=== PATIENT | male | born 1955 | race Caucasian/White ===

== ENCOUNTER → 2018-02-03 | Day surgery (SDC) | payer OTHER ==
[~2018-02-03] VITALS: Ht 175.2 cm; Wt 108.9 kg
[~2018-02-03] MED LIST: ACTOS30 MG PO; AMARYL4 MG PO; ASPIRIN81 M1 PO; CRESTOR10 MG PO; METFORMIN1000 MG PO; PLAVIX75 MG PO; TENORMIN25 MG PO; ZANTAC 300300 MG PO
--- NOTE | ~2018-02-03 | O ---
[place], [place] OPERATIVE NOTE NAME: LENA DEAN [facility] #: [id number] UNIT #: [id number] ROOM: DOCTOR: MARIANA MATHEWS MD BIRTHDATE: [birth year] DOS: 02/03/2018 PREOPERATIVE DIAGNOSIS: Cataract, left eye. POSTOPERATIVE DIAGNOSIS: Cataract, left eye. OPERATION: Extracapsular cataract extraction by phacoemulsification with posterior chamber intraocular lens implantation, left eye. ANESTHESIA: Monitored standby. OPERATIVE FINDINGS AND PROCEDURE: 2% Xylocaine topical anesthetic gel was applied to the eye in the preop area. The patient was taken to the operating room and prepped and draped in the standard fashion for sterile intraocular surgery. A time out procedure was performed verifying correct patient, correct site and corrects lens with Xiao Mathews M.D. The operating microscope was swung into position and the lid speculum was inserted. Using a Mary paracentesis blade, a paracentesis was made through clear cornea. Viscoelastic was used to fill the anterior chamber. Using a metal keratome a 2.4 mm self-sealing clear corneal cataract incision was made temporally at the limbus. Using a pre-bent 25 gauge cystotome needle, a standard continuous curvilinear capsulorrhexis was performed. The anterior capsule was removed with forceps. The lens nucleus was hydrodissected and phacoemulsified in the posterior chamber. Cortical material was removed with the irrigation aspiration hand piece and the posterior capsule was then polished with a curet under irrigation. The posterior chamber and capsular bag were filled with viscoelastic. A posterior chamber intraocular lens manufactured by: [employer], Model #[id number], and 17.0 diopters in strength were then inserted into the posterior chamber and within the capsular bag using the lens cartridge and injector system. Viscoelastic was removed using the irrigation aspiration handpiece. The anterior chamber was filled with balanced salt solution through the paracentesis. Both the paracentesis site and cataract incisions were hydrated with BSS and verified to be water-tight and self-sealing. The incision checked to be water-tight using a Weck-Cherrie sponge. The integrity of the cataract wound and ocular tension were checked. Lid speculum and drapes were removed. The patient was transferred from the operating room to the recovery room in satisfactory condition. [place], [place] OPERATIVE NOTE NAME: LENA DEAN UNIT #: [id number] ROOM: DOCTOR: MARIANA MATHEWS MD BIRTHDATE: [birth year] MARIANA MATHEWS MD CM:OPRECORD:OPERATIVE NOTE [id number] MARIANA MATHEWS MD 02/03/18 1017 interface
[2018-02-03 09:00] VITALS: BP 118/48
[2018-02-03 09:44] VITALS: BP 113/53
[2018-02-03 09:57] VITALS: BP 115/52
[2018-02-03 10:09] VITALS: BP 121/49
== END | disposition home or self-care (01) ==
LOC: SDC 01-28 08:45
DX: H25.812 Combined forms of age-related cataract, left eye (principal); I10 Essential (primary) hypertension; I25.10 Atherosclerotic heart disease of native coronary artery without angina pectoris; E11.9 Type 2 diabetes mellitus without complications; E78.00 Pure hypercholesterolemia, unspecified; K21.9 Gastro-esophageal reflux disease without esophagitis; F41.9 Anxiety disorder, unspecified; Z87.891 Personal history of nicotine dependence; Z95.5 Presence of coronary angioplasty implant and graft; Z88.0 Allergy status to penicillin; Z91.041 Radiographic dye allergy status; Z79.899 Other long term (current) drug therapy; Z82.49 Family history of ischemic heart disease and other diseases of the circulatory system; Z83.3 Family history of diabetes mellitus; Z98.890 Other specified postprocedural states

== ENCOUNTER → 2018-02-24 | Day surgery (SDC) | payer OTHER ==
[~2018-02-24] VITALS: Ht 175.2 cm; Wt 108.9 kg
--- NOTE | ~2018-02-24 | O ---
[place], [place] OPERATIVE NOTE NAME: LENA DEAN [facility] #: [id number] UNIT #: [id number] ROOM: DOCTOR: MARIANA MATHEWS MD BIRTHDATE: [birth year] DOS: 02/24/2018 PREOPERATIVE DIAGNOSIS: Cataract, right eye. POSTOPERATIVE DIAGNOSIS: Cataract, right eye. OPERATION: Extracapsular cataract extraction by phacoemulsification with posterior chamber intraocular lens implantation, right eye. ANESTHESIA: Monitored standby. OPERATIVE FINDINGS AND PROCEDURE: 2% Xylocaine topical anesthetic gel was applied to the eye in the preop area. The patient was taken to the operating room and prepped and draped in the standard fashion for sterile intraocular surgery. A time out procedure was performed verifying correct patient, correct site and corrects lens with Xiao Mathews M.D. The operating microscope was swung into position and the lid speculum was inserted. Using a Mary paracentesis blade, a paracentesis was made through clear cornea. Viscoelastic was used to fill the anterior chamber. Using a metal keratome a 2.4 mm self-sealing clear corneal cataract incision was made temporally at the limbus. Using a pre-bent 25 gauge cystotome needle, a standard continuous curvilinear capsulorrhexis was performed. The anterior capsule was removed with forceps. The lens nucleus was hydrodissected and phacoemulsified in the posterior chamber. Cortical material was removed with the irrigation aspiration hand piece and the posterior capsule was then polished with a curet under irrigation. The posterior chamber and capsular bag were filled with viscoelastic. A posterior chamber intraocular lens manufactured by: [employer], Model #[id number], and 17.5 diopters in strength were then inserted into the posterior chamber and within the capsular bag using the lens cartridge and injector system. Viscoelastic was removed using the irrigation aspiration handpiece. The anterior chamber was filled with balanced salt solution through the paracentesis. Both the paracentesis site and cataract incisions were hydrated with BSS and verified to be water-tight and self-sealing. The incision checked to be water-tight using a Weck-Cherrie sponge. The integrity of the cataract wound and ocular tension were checked. Lid speculum and drapes were removed. The patient was transferred from the operating room to the recovery room in satisfactory condition. [place], [place] OPERATIVE NOTE NAME: LENA DEAN UNIT #: [id number] ROOM: DOCTOR: MARIANA MATHEWS MD BIRTHDATE: [birth year] MARIANA MATHEWS MD CM:OPRECORD:OPERATIVE NOTE MARIANA MATHEWS MD 02/24/18 0941 interface
[2018-02-24 07:40] VITALS: BP 122/75
[2018-02-24 09:20] VITALS: BP 118/65
[2018-02-24 09:35] VITALS: BP 121/66
[2018-02-24 09:49] VITALS: BP 144/69
== END | disposition home or self-care (01) ==
LOC: SDC 02-19 09:30
DX: H25.811 Combined forms of age-related cataract, right eye (principal); I10 Essential (primary) hypertension; I25.10 Atherosclerotic heart disease of native coronary artery without angina pectoris; E11.9 Type 2 diabetes mellitus without complications; F41.9 Anxiety disorder, unspecified; K21.9 Gastro-esophageal reflux disease without esophagitis; E66.9 Obesity, unspecified; Z68.35 Body mass index [BMI] 35.0-35.9, adult; Z88.0 Allergy status to penicillin; Z88.3 Allergy status to other anti-infective agents; Z98.42 Cataract extraction status, left eye; Z96.1 Presence of intraocular lens; Z79.899 Other long term (current) drug therapy; Z87.891 Personal history of nicotine dependence; Z95.5 Presence of coronary angioplasty implant and graft; Z83.3 Family history of diabetes mellitus; Z82.49 Family history of ischemic heart disease and other diseases of the circulatory system; Z80.0 Family history of malignant neoplasm of digestive organs

== ENCOUNTER → 2020-09-14 | Outpatient (CLI) | payer MEDICARE ==
[2020-09-14 09:50] LABS: BUN 21 mg/dl (7-24); CHLORIDE 106 mmol/L (98-107); CHOLESTEROL 119 mg/dL (<200); CREATININE 1.28 mg/dL (0.70-1.30); POTASSIUM 4.7 mmol/L (3.5-5.1); SODIUM 134 mmol/L (136-145); TRIGLYCERIDES 117 mg/dl (<150)
[2020-09-14 09:58] LABS: LDL CHOLESTEROL 51 mg/dL (9-159)
== END | disposition home or self-care (01) ==
LOC: LAB 09:03
PROVIDERS: ATTEND Family Medicine
DX: E11.9 Type 2 diabetes mellitus without complications (principal); E78.2 Mixed hyperlipidemia; I25.10 Atherosclerotic heart disease of native coronary artery without angina pectoris

== ENCOUNTER → 2021-01-02 | Outpatient (CLI) | payer MEDICARE ==
[2021-01-02 14:48] LABS: BUN 21 mg/dl (7-24); CHLORIDE 105 mmol/L (98-107); CREATININE 1.15 mg/dL (0.70-1.30); POTASSIUM 4.4 mmol/L (3.5-5.1); SODIUM 139 mmol/L (136-145)
== END | disposition home or self-care (01) ==
LOC: LAB 13:39
PROVIDERS: ATTEND Family Medicine
DX: E11.9 Type 2 diabetes mellitus without complications (principal)

== ENCOUNTER → 2021-06-27 | Outpatient (CLI) | payer MEDICARE ==
[2021-06-27 13:14] LABS: CHLORIDE 104 mmol/L (98-107); POTASSIUM 4.8 mmol/L (3.5-5.1); SODIUM 137 mmol/L (136-145)
[2021-06-27 13:30] LABS: BUN 19 mg/dl (7-24); CHOLESTEROL 114 mg/dL (<200); CREATININE 1.19 mg/dL (0.70-1.30); LDL CHOLESTEROL 47 mg/dL (9-159); TRIGLYCERIDES 124 mg/dl (<150)
== END | disposition home or self-care (01) ==
LOC: LAB 11:46
PROVIDERS: ATTEND Family Medicine
DX: I10 Essential (primary) hypertension (principal); E11.9 Type 2 diabetes mellitus without complications; E78.2 Mixed hyperlipidemia

== ENCOUNTER → 2021-11-06 | Day surgery (SDC) | payer MEDICARE ==
[2021-11-01 13:21] LABS: BASO % 0.7 % (0.0-1.0); EOS # 0.1 10*3/uL (0.0-0.4); EOS % 1.5 % (1.0-4.0); HEMATOCRIT 37.2 % (42.0-52.0); LYMPH % 32.5 % (27.0-41.0); MEAN CELL VOLUME 96.9 fl (80.0-94.0); MEAN CORPUSCULAR HGB 31.5 pg (27.0-31.0); MEAN CORPUSCULAR HGB CONC 32.5 g/dl (33.0-37.0); MONO # 0.6 10*3/uL (0.1-1.0); MONO % 10.3 % (3.0-9.0); NEUT # 3.3 10*3/uL (2.3-7.9); NEUT % 54.5 % (47.0-73.0); PLATELET COUNT AUTOMATED 178 10*3/uL (130-400); RED BLOOD COUNT 3.84 10*6/uL (4.50-5.90); RED CELL DISTRI WIDTH 13.6 % (0-14.5)
[2021-11-01 13:34] LABS: ACT PARTIAL THROMBO TIME 26.2 SECONDS (20.0-32.1)
[~2021-11-06] VITALS: Ht 175.2 cm; Wt 108.9 kg
[2021-11-06 08:17] VITALS: BP 127/68
[2021-11-06 08:32] VITALS: BP 123/68
[2021-11-06 08:47] VITALS: BP 116/67
[2021-11-06 09:01] VITALS: BP 120/59
== END | disposition home or self-care (01) ==
LOC: SDC 11-01 12:51
PROVIDERS: ATTEND Specialist
DX: R04.0 Epistaxis (principal); I10 Essential (primary) hypertension; E11.9 Type 2 diabetes mellitus without complications; F41.9 Anxiety disorder, unspecified; K21.9 Gastro-esophageal reflux disease without esophagitis; I25.10 Atherosclerotic heart disease of native coronary artery without angina pectoris; Z88.0 Allergy status to penicillin; Z88.5 Allergy status to narcotic agent; Z95.5 Presence of coronary angioplasty implant and graft; Z98.42 Cataract extraction status, left eye; Z98.41 Cataract extraction status, right eye

== ENCOUNTER → 2021-11-22 | Outpatient (CLI) | payer MEDICARE ==
[2021-11-22 09:08] LABS: BUN 28 mg/dl (7-24); CHLORIDE 107 mmol/L (98-107); CREATININE 1.29 mg/dL (0.70-1.30); POTASSIUM 4.6 mmol/L (3.5-5.1); SODIUM 139 mmol/L (136-145)
== END | disposition home or self-care (01) ==
LOC: LAB 08:35
PROVIDERS: ATTEND Family Medicine
DX: E11.9 Type 2 diabetes mellitus without complications (principal)

== ENCOUNTER → 2022-07-01 | Outpatient (CLI) | payer MEDICARE ==
[2022-07-01 12:27] LABS: BILIRUBIN Negative (Negative); BLOOD Negative (Negative); CLARITY Clear (Clear); COLOR Yellow (Yellow); GLUCOSE Negative (Negative); KETONE Negative (Negative); LEUKO ESTERASE Negative (Negative); NITRITE Negative (Negative); PH 6.5 (4.5-8.0); SPECIFIC GRAVITY 1.015 (1.001-1.030); UROBILINOGEN 0.2 E.U./dl (0.0-1.0)
[2022-07-01 12:37] LABS: BACTERIA TRACE; EPITHELIAL CELLS 0-2; RBC 0-2 rbc/hpf (0-2); WBC 0-2 wbc/hpf (0-5)
[2022-07-01 12:59] LABS: BUN 16 mg/dl (9-23); CHLORIDE 103 mmol/L (98-107); CHOLESTEROL 119 mg/dL (<200); LDL CHOLESTEROL 57 mg/dL (9-159); POTASSIUM 5.2 mmol/L (3.4-5.1); THYROID STIM HORMONE (HS) 1.511 uIU/ml (0.550-4.780); TRIGLYCERIDES 94 mg/dl (<150)
== END | disposition home or self-care (01) ==
LOC: LAB 12:06
PROVIDERS: ATTEND Family Medicine
DX: Z12.5 Encounter for screening for malignant neoplasm of prostate (principal); N40.1 Benign prostatic hyperplasia with lower urinary tract symptoms; E11.9 Type 2 diabetes mellitus without complications; I10 Essential (primary) hypertension; E78.2 Mixed hyperlipidemia

== ENCOUNTER → 2022-07-28 | Outpatient (CLI) | payer MEDICARE | END | disposition home or self-care (01) | LOC: US 01:55 | PROVIDERS: ATTEND Family Medicine | DX: Z13.6 Encounter for screening for cardiovascular disorders (principal) ==

== ENCOUNTER → 2023-01-21 | Outpatient (CLI) | payer MEDICARE ==
[2023-01-21 15:50] LABS: URIC ACID 5.8 mg/dL (3.7-9.2)
[2023-01-22 13:06] LABS: CCP ANTIBODIES IGG/IGA 3 units (0-19)
== END | disposition home or self-care (01) ==
LOC: LAB 14:56
PROVIDERS: ATTEND Family Medicine
DX: M13.0 Polyarthritis, unspecified (principal)

== ENCOUNTER → 2023-06-09 | Outpatient (CLI) | payer MEDICARE ==
[2023-06-09 10:55] LABS: BUN 18 mg/dl (9-23); CHLORIDE 104 mmol/L (98-107); CHOLESTEROL 147 mg/dL (<200); LDL CHOLESTEROL 82 mg/dL (9-159); POTASSIUM 4.2 mmol/L (3.4-5.1); TRIGLYCERIDES 114 mg/dl (<150)
== END | disposition home or self-care (01) ==
LOC: LAB 09:17
PROVIDERS: ATTEND Family Medicine
DX: I25.10 Atherosclerotic heart disease of native coronary artery without angina pectoris (principal); E11.8 Type 2 diabetes mellitus with unspecified complications; E78.2 Mixed hyperlipidemia

== ENCOUNTER → 2023-10-15 | Outpatient (CLI) | payer MEDICARE ==
[2023-10-15 09:55] LABS: MEAN CELL VOLUME 98.4 fl (80.0-94.0); MEAN CORPUSCULAR HGB 30.9 pg (27.0-31.0); MEAN CORPUSCULAR HGB CONC 31.4 g/dl (33.0-37.0); MEAN PLATELET VOLUME 13.4 fl (9.6-12.3); RED BLOOD COUNT 4.27 10*6/uL (4.50-5.90); RED CELL DISTRI WIDTH 13.8 % (0-14.5); WHITE BLOOD COUNT 6.5 10*3/uL (4.8-10.8)
[2023-10-15 10:16] LABS: ALKALINE PHOSPHATASE 57 U/L (46-116); BUN 19 mg/dl (9-23); CHLORIDE 104 mmol/L (98-107); CHOLESTEROL 133 mg/dL (<200); CPK 53 U/L (34-171); LDL CHOLESTEROL 68 mg/dL (9-159); POTASSIUM 4.3 mmol/L (3.4-5.1); SGPT/ALT 13 U/L (5-49); TRIGLYCERIDES 88 mg/dl (<150)
[2023-10-15 10:25] LABS: VITAMIN D, 25-HYDROXY 35.9 ng/mL (30-100)
== END | disposition home or self-care (01) ==
LOC: LAB 09:38
PROVIDERS: ATTEND Family Medicine
DX: I10 Essential (primary) hypertension (principal); E11.9 Type 2 diabetes mellitus without complications; E78.00 Pure hypercholesterolemia, unspecified; N40.0 Benign prostatic hyperplasia without lower urinary tract symptoms

== ENCOUNTER → 2024-01-29 | Outpatient (CLI) | payer MEDICARE | END | disposition home or self-care (01) | LOC: RAD 08:30 | PROVIDERS: ATTEND Family Medicine | DX: R91.1 Solitary pulmonary nodule (principal) ==

== ENCOUNTER → 2024-02-05 | Outpatient (CLI) | payer MEDICARE | END | disposition home or self-care (01) | LOC: LAB 14:04 | PROVIDERS: ATTEND Family Medicine | DX: R94.4 Abnormal results of kidney function studies (principal) ==

== ENCOUNTER → 2024-02-08 | Outpatient (CLI) | payer MEDICARE ==
[~2024-02-08] MED LIST changes: +Iodixanol 320 100 ML VIAL IV ONE; +Iodixanol 320 100 ML VIAL ONE
== END | disposition home or self-care (01) ==
LOC: CT 00:21
PROVIDERS: ATTEND Family Medicine
DX: J92.9 Pleural plaque without asbestos (principal); J98.4 Other disorders of lung; F17.210 Nicotine dependence, cigarettes, uncomplicated; I25.10 Atherosclerotic heart disease of native coronary artery without angina pectoris; K76.0 Fatty (change of) liver, not elsewhere classified

== ENCOUNTER → 2024-05-27 | Outpatient (CLI) | payer MEDICARE ==
[~2024-05-27] MED LIST changes: -Iodixanol 320 100 ML VIAL IV ONE; -Iodixanol 320 100 ML VIAL ONE
[2024-05-27 11:38] LABS: HEMATOCRIT 43.1 % (42.0-52.0); MEAN CORPUSCULAR HGB 31.1 pg (27.0-31.0); MEAN CORPUSCULAR HGB CONC 31.8 g/dl (33.0-37.0); MEAN PLATELET VOLUME 13.8 fl (9.6-12.3); RED BLOOD COUNT 4.4 10*6/uL (4.50-5.90); RED CELL DISTRI WIDTH 12.8 % (0-14.5); WHITE BLOOD COUNT 5.6 10*3/uL (4.8-10.8)
[2024-05-27 11:57] LABS: ALKALINE PHOSPHATASE 55 U/L (46-116); BUN 25 mg/dl (9-23); CHLORIDE 104 mmol/L (98-107); CHOLESTEROL 150 mg/dL (<200); CPK 48 U/L (34-171); LDL CHOLESTEROL 80 mg/dL (9-159); POTASSIUM 5.2 mmol/L (3.4-5.1); SGPT/ALT 16 U/L (5-49); TOTAL PROTEIN 7.1 gm/dL (6.0-8.0); TRIGLYCERIDES 110 mg/dl (<150)
== END | disposition home or self-care (01) ==
LOC: LAB 11:20
PROVIDERS: ATTEND Family Medicine
DX: Z12.5 Encounter for screening for malignant neoplasm of prostate (principal); E11.9 Type 2 diabetes mellitus without complications; I10 Essential (primary) hypertension; E78.00 Pure hypercholesterolemia, unspecified

== ENCOUNTER → 2024-07-08 | Outpatient (CLI) | payer MEDICARE | END | disposition home or self-care (01) | LOC: RAD 09:52 | PROVIDERS: ATTEND Family Medicine | DX: M47.817 Spondylosis without myelopathy or radiculopathy, lumbosacral region (principal); M54.9 Dorsalgia, unspecified ==

== ENCOUNTER → 2024-09-06 | Outpatient (CLI) | payer MEDICARE ==
[2024-09-06 10:38] LABS: MEAN CELL VOLUME 98.3 fl (80.0-94.0); MEAN CORPUSCULAR HGB 30.8 pg (27.0-31.0); MEAN PLATELET VOLUME 13.5 fl (9.6-12.3); NUCLEATED RED BLOOD CELL 0.0 % (0.0-0.0); NUCLEATED RED BLOOD CELL 0.0 10*3/uL (0.0-0.0); PLATELET COUNT AUTOMATED 152.0 10*3/uL (130-400); RED CELL DISTRI WIDTH 13.2 % (0-14.5)
[2024-09-06 11:28] LABS: BUN 15 mg/dl (9-23); CPK 51 U/L (34-171); FREE T4 1.41 ng/dl (0.89-1.76); LDL CHOLESTEROL 55 mg/dL (9-159); SGPT/ALT 16 U/L (5-49)
== END | disposition home or self-care (01) ==
LOC: LAB 09:55
PROVIDERS: ATTEND Family Medicine
DX: I10 Essential (primary) hypertension (principal); E78.00 Pure hypercholesterolemia, unspecified; E11.9 Type 2 diabetes mellitus without complications